=== PATIENT | female | born 1985 | race African-American/Black ===

== ENCOUNTER 2016-11-26 19:46 | Emergency (ER) | payer MEDICARE, OTHER ==
[~2016-11-26] VITALS: Ht 162.6 cm; Wt 72.0 kg
[2016-11-26 19:48] VITALS: BP 156/72; PULSE 68; RESP 16; TEMP 99.2; O2SAT 100
[2016-11-26] MEDS ORDERED: NABU1TAB37 PO (21:44)
[2016-11-26] MEDS ORDERED: AMOX500C PO (21:44)
--- NOTE | 2016-11-26 21:45 | PD ---
HPI . Right ear pain and right lower toothache Chief Complaint: ENT Complaint Time Seen by Provider: 21:33 Travel History International Travel<30 days: No Contact w/Intl Traveler<30days: No Traveled to known affect area: No History of Present Illness HPI This patient presents with a one-week history of both right ear pain and right lower tooth pain. She has been taking ibuprofen without relief. No relieving or exacerbating factors. Pain rated 9/10. PFSH Past Medical History Medical History: Denies Significant Hx Diminished Hearing: No ?: Not LMP: 11/26/16 Past Surgical History Surgical History: No Previous Surgery Social History Alcohol Use: No Tobacco Use: No Substance Use: No Allergies-Medications (Allergen,Severity, Reaction): Coded Allergies: No Known Allergies (Unverified , 11/26/16) Review of Systems Except as stated in HPI: all other systems reviewed are Neg General / Constitutional: No: Fever, Chills HENT: Positive: Dental Difficulties, Earache Physical Exam Narrative GENERAL: Awake and alert and in no acute distress. SKIN: Warm and dry. HEAD: Normocephalic/atraumatic. EYES: No redness or drainage. ENT: TMs shiny [place] with good light reflex. Poor dentition, right mandibular but no tenderness to percussion of her teeth. No gingival swelling or erythema. NECK: No cervical lymphadenopathy. CARDIOVASCULAR: Regular rate and rhythm. RESPIRATORY: Nonlabored. MUSCULOSKELETAL: Atraumatic. NEUROLOGICAL: Nonfocal. PSYCHIATRIC: Appropriate mood and affect. Data Data Last Documented VS Vital Signs Date Time Temp Pulse Resp B/P (MAP) Pulse Ox O2 Delivery O2 Flow Rate FiO2 11/26/16 19:48 99.2 68 16 156/72 (100) 100 Room Air MDM Medical Decision Making Medical Screen Exam Complete: Yes Emergency Medical Condition: Yes Differential Diagnosis Differential diagnosis of ear pain includes eustachian tube dysfunction, otitis externa, otitis media, TMJ syndrome Narrative Course This patient presents with an earache and toothache. Because of the toothache, I have written her a prescription for amoxicillin. I will give her a prescription for Relafen. She needs to follow-up with a dentist. Diagnosis Primary Impression: Earache on right Additional Impression: Toothache Patient Instructions: Earache (ED), General Instructions, Toothache (ED) Med/Other Pt SpecificInfo: Prescription(s) given Scripts Nabumetone (Nabumetone) 500 Mg Tab 500 MG PO BID for Pain-Inflammation, #60 TAB 0 Refills Prov: Shae Alberts MD 11/26/16 Amoxicillin (Amoxicillin) 500 Mg Cap 500 MG PO TID for Infection, #30 CAP 0 Refills Prov: Shae Alberts MD 11/26/16 Disposition: 01 DISCHARGE HOME Condition: Stable Shae Alberts MD Nov 26, 2016 21:45
== END 2016-11-26 22:03 | disposition home or self-care (01) ==
LOC: NEPD 19:46
DX: H92.01 Otalgia, right ear (principal)
CPT/HCPCS: 99284

== ENCOUNTER 2017-08-04 12:06 | Emergency (ER) | payer OTHER ==
[~2017-08-04] VITALS: Ht 157.5 cm; Wt 68.0 kg
[~2017-08-04 12:06] MED LIST: AMOX500C PO; NABU1TAB37 PO
[2017-08-04 12:18] VITALS: BP 119/60; PULSE 76; RESP 18; TEMP 100; O2SAT 100
--- NOTE | 2017-08-04 13:10 | PD ---
HPI Chief Complaint: GI Complaint Time Seen by Provider: 12:42 Travel History International Travel<30 days: No Contact w/Intl Traveler<30days: No Traveled to known affect area: No History of Present Illness HPI Is a 32-year-old woman who presents to the emergency department complaining of nausea vomiting and a little bit of diarrhea. Symptoms started last night and that this morning. Multiple episodes of nausea and vomiting. One episode of loose stools. No definite sick contacts. Young child and has has URI symptoms but no nausea vomiting. History Past Medical History Medical History: Denies Significant Hx LMP: JUNE 2017 Social History Alcohol Use: No Tobacco Use: No Allergies-Medications (Allergen,Severity, Reaction): Coded Allergies: No Known Allergies (Unverified , 11/26/16) Reported Meds & Prescriptions Reported Meds & Active Scripts Active Nabumetone 500 Mg Tab 500 Mg PO BID Amoxicillin 500 Mg Cap 500 Mg PO TID Review of Systems Except as stated in HPI: all other systems reviewed are Neg Physical Exam Narrative GENERAL: Well-appearing 32-year-old woman, no acute distress. SKIN: Focused skin assessment warm/dry. HEAD: Atraumatic. Normocephalic. EYES: Pupils equal and round. No scleral icterus. No injection or drainage. ENT: No nasal bleeding or discharge. Mucous membranes pink and moist. NECK: Trachea midline. No JVD. CARDIOVASCULAR: Regular rate and rhythm. No murmur appreciated. RESPIRATORY: No accessory muscle use. Clear to auscultation. Breath sounds equal bilaterally. GASTROINTESTINAL: Abdomen soft, non-tender, nondistended. Hepatic and splenic margins not palpable. MUSCULOSKELETAL: No obvious deformities. No clubbing. No cyanosis. No edema. NEUROLOGICAL: Awake and alert. No obvious cranial nerve deficits. Motor grossly within normal limits. Normal speech. PSYCHIATRIC: Appropriate mood and affect; insight and judgment normal. Data Data Last Documented VS Vital Signs Date Time Temp Pulse Resp B/P (MAP) Pulse Ox O2 Delivery O2 Flow Rate FiO2 08/04/17 12:18 100.0 76 18 119/60 (79) 100 Orders Orders Complete Blood Count With Diff (08/04/17 12:48) Comprehensive Metabolic Panel (08/04/17 12:48) Ed Urine Pregnancytest Poc (08/04/17 12:48) Labs Laboratory Tests Test 08/04/17 13:10 White Blood Count 6.6 TH/MM3 Red Blood Count 4.59 MIL/MM3 Hemoglobin 11.9 GM/DL Hematocrit 36.9 % Mean Corpuscular Volume 80.4 FL Mean Corpuscular Hemoglobin 25.9 PG Mean Corpuscular Hemoglobin Concent 32.2 % Red Cell Distribution Width 15.0 % Platelet Count 352 TH/MM3 Mean Platelet Volume 7.4 FL Neutrophils (%) (Auto) 77.9 % Lymphocytes (%) (Auto) 14.9 % Monocytes (%) (Auto) 6.4 % Eosinophils (%) (Auto) 0.5 % Basophils (%) (Auto) 0.3 % Neutrophils # (Auto) 5.2 TH/MM3 Lymphocytes # (Auto) 1.0 TH/MM3 Monocytes # (Auto) 0.4 TH/MM3 Eosinophils # (Auto) 0.0 TH/MM3 Basophils # (Auto) 0.0 TH/MM3 CBC Comment DIFF FINAL Differential Comment Blood Urea Nitrogen 9 MG/DL Creatinine 0.84 MG/DL Random Glucose 90 MG/DL Total Protein 8.0 GM/DL Albumin 3.7 GM/DL Calcium Level 8.6 MG/DL Alkaline Phosphatase 92 U/L Aspartate Amino Transf (AST/SGOT) 15 U/L Alanine Aminotransferase (ALT/SGPT) 17 U/L Total Bilirubin 0.5 MG/DL Sodium Level 138 MEQ/L Potassium Level 3.8 MEQ/L Chloride Level 104 MEQ/L Carbon Dioxide Level 25.8 MEQ/L Anion Gap 8 MEQ/L Estimat Glomerular Filtration Rate 96 ML/MIN [facility] Medical Decision Making Medical Screen Exam Complete: Yes Emergency Medical Condition: Yes Interpretation(s) LABS: CBC is unremarkable CMP is unremarkable Differential Diagnosis Gastroneuritis, gastritis, peptic ulcer disease, other Narrative Course Medical decision making Is a 32-year-old woman who presents to the emergency department quitting of nausea vomiting 1 episode of loose watery stools. Likely gastroenteritis. Will check labs. She is benign abdominal exam. Supportive treatment. Diagnosis Primary Impression: Acute gastroenteritis Additional Instructions: Use Zofran as needed for nausea or vomiting. Drink plenty fluids stay well-hydrated. Return to the emergency department for any new or worsening symptoms. Med/Other Pt SpecificInfo: Prescription(s) given Scripts Ondansetron Odt (Ondansetron Odt) 4 Mg Tab 4 MG SL Q8HR Y for Nausea/Vomiting, #12 TAB 0 Refills Prov: Gerry Corrales MD 08/04/17 Disposition: 01 DISCHARGE HOME Condition: Stable Gerry Corrales MD Aug 04, 2017 13:10
[2017-08-04 13:32] LABS: AUTOMATED NEUTROPHIL # 5.2 TH/MM3 (1.8-7.7); BASOPHIL % 0.3 % (0.0-2.0); EOSINOPHIL % 0.5 % (0.0-4.0); HEMATOCRIT 36.9 % (35.0-46.0); HEMOGLOBIN 11.9 GM/DL (11.6-15.3); LYMPH % 14.9 % (9.0-44.0); MEAN CELL VOLUME 80.4 FL (80.0-100.0); MEAN CORPUSCULAR HEMOGLOBIN 25.9 PG (27.0-34.0); MEAN CORPUSCULAR HGB CONC 32.2 % (32.0-36.0); MEAN PLATELET VOLUME 7.4 FL (7.0-11.0); MONO % 6.4 % (0.0-8.0); MONOCYTE # 0.4 TH/MM3 (0-0.9); NEUT % 77.9 % (16.0-70.0); PLATELET COUNT 352 TH/MM3 (150-450); RED BLOOD COUNT 4.59 MIL/MM3 (4.00-5.30); WHITE BLOOD COUNT 6.6 TH/MM3 (4.0-11.0)
[2017-08-04 13:55] LABS: ALBUMIN 3.7 GM/DL (3.4-5.0); AST (GOT) 15 U/L (15-37); BICARBONATE 25.8 MEQ/L (21.0-32.0); BLOOD UREA NITROGEN 9 MG/DL (7-18); CALCIUM 8.6 MG/DL (8.5-10.1); CHLORIDE 104 MEQ/L (98-107); CREATININE 0.84 MG/DL (0.50-1.00); GLOMERULAR FILTRATION RATE 96 ML/MIN (>89); GLUCOSE,RANDOM 90 MG/DL (74-106); SODIUM (NA) 138 MEQ/L (136-145)
[2017-08-04 14:18] LABS: ALKALINE PHOSPHATASE 92 U/L (45-117); ALT (GPT) 17 U/L (10-53); TOTAL BILIRUBIN ADULT 0.5 MG/DL (0.2-1.0)
[2017-08-04] MEDS ORDERED: ONDA4TAB7 SL (14:31)
[2017-08-04 15:04] VITALS: BP 118/62
== END 2017-08-04 15:05 | disposition home or self-care (01) ==
LOC: NEPD 12:06
DX: K52.9 Noninfective gastroenteritis and colitis, unspecified (principal)
CPT/HCPCS: 80053; 84703; 85025; 99283